=== PATIENT | male | born 1950 | race Two or more races ===

== ENCOUNTER 2018-10-02 20:43 | Emergency (ER) | payer OTHER ==
[~2018-10-02] VITALS: Ht 182.9 cm; Wt 95.3 kg
[2018-10-02] MEDS ORDERED: FORTAMET500 MG (20:54)
[2018-10-02] MEDS ORDERED: CLONIDINE HCL0.2 MG (20:55)
[2018-10-02] MEDS ORDERED: AMLODIPINE BESY10 MG (20:55)
[2018-10-02] MEDS ORDERED: TEMAZEPAM15 MG (20:56)
[2018-10-02] MEDS ORDERED: CLONAZEPAM0.25 MG (20:57)
[2018-10-02] MEDS ORDERED: CARVEDILOL25 MG (20:57)
[2018-10-02] MEDS ORDERED: ESCITALOPRAM OX10 MG (20:58)
[2018-10-02] MEDS ORDERED: COZAAR100 MG (20:58)
== END 2018-10-02 23:47 | disposition home or self-care (01) ==
LOC: ER 20:43
DX: I16.0 Hypertensive urgency (principal); I10 Essential (primary) hypertension